=== PATIENT | male | born 1960 | race Caucasian/White ===

== ENCOUNTER → 2020-05-05 15:49 | Outpatient (CLI) | payer BC, SELFPAY | PROVIDERS: PCP Family Medicine; Visit Provider Specialist | DX: N39.0 Urinary tract infection, site not specified (principal); N40.1 Benign prostatic hyperplasia with lower urinary tract symptoms; N13.8 Other obstructive and reflux uropathy; N52.9 Male erectile dysfunction, unspecified | CPT/HCPCS: 51798; 81002; 87086 ==

== ENCOUNTER → 2021-03-04 08:21 | Outpatient (CLI) | payer OTHER, SELFPAY ==
--- NOTE | 2021-03-04 | DI.RAD.S_ITS ---
PROCEDURE: XR CHEST 2V INDICATIONS: ROUTINE SCREENING TECHNIQUE: 2 views of the chest were acquired. COMPARISON: None. FINDINGS: Surgical changes and devices: None. Lungs and pleura: Lungs are clear. No pleural effusions or pneumothorax. Mediastinum: Mediastinal contours are normal. Heart size is normal. Bones and chest wall: No suspicious bony abnormalities. Soft tissues appear unremarkable. IMPRESSION: No acute cardiopulmonary disease. Dictated by: Tiana De Luna M.D. on 03/04/2021 at 12:09 Approved by: Tiana De Luna M.D. on 03/04/2021 at 12:09
== END ==
PROVIDERS: PCP Family Medicine; Referring Provider Family Medicine; Visit Provider Family Medicine
DX: R06.00 Dyspnea, unspecified (principal)
CPT/HCPCS: 71046

== ENCOUNTER → 2021-12-16 09:44 | Outpatient (CLI) | payer OTHER, SELFPAY ==
--- NOTE | 2021-12-16 | DI.RAD.S_ITS ---
PROCEDURE: XR CHEST 2V INDICATIONS: COUGH TECHNIQUE: 2 views of the chest were acquired. COMPARISON: [facility], CR, XR CHEST 2V, 03/04/2021, 8:20. FINDINGS: Surgical changes and devices: None. Lungs and pleura: Lungs are clear. No pleural effusions or pneumothorax. Mediastinum: Mediastinal contours are normal. Heart size is normal. Bones and chest wall: No suspicious bony abnormalities. Soft tissues appear unremarkable. IMPRESSION: No acute cardiopulmonary disease. Dictated by: Tiana De Luna M.D. on 12/16/2021 at 13:24 Approved by: Tiana De Luna M.D. on 12/16/2021 at 13:24
== END ==
PROVIDERS: PCP Family Medicine; Referring Provider Family Medicine; Visit Provider Family Medicine
DX: R05.1 Acute cough (principal)
CPT/HCPCS: 71046

== ENCOUNTER → 2022-01-19 08:20 | Outpatient (CLI) | payer OTHER, SELFPAY ==
--- NOTE | 2022-01-25 09:21 | PM.PFT.1 ---
Pulmonary Function Test Referral & Results Date Patient Seen: 01/19/22 Requesting provider: Desmond Avalos Results: The spirometry demonstrates an FVC of 4.12 L which is 76% of predicted. The FEV1 was measured at 3.11 L which is 77% of predicted. The FEV1/FVC ratio was 75 which is 100% of predicted. Following the administration of bronchodilator there was no notable change. Lung volumes show an SVC of 4.23 L which is 80% of predicted. The diffusing capacity was measured at 36.29 which is 96% of predicted. The maximum voluntary ventilation was normal Interpretation: This study demonstrates possibly very mild obstructive lung disease based on reduction FEV1 alone although FEV1/FVC ratio is preserved and there is no evidence of notable benefit following bronchodilator There is a minimal reduction in lung volumes suggesting the possibility of very minimal restrictive lung disease as well Clinical correlation suggested
== END ==
PROVIDERS: PCP Family Medicine; Referring Provider Family Medicine; Visit Provider Family Medicine
DX: R06.02 Shortness of breath (principal); J98.8 Other specified respiratory disorders
CPT/HCPCS: 94060; 94726; 94729

== ENCOUNTER → 2022-01-26 16:59 | Outpatient (CLI) | payer OTHER, SELFPAY ==
[2022-01-26 18:18] LABS: BUN Creatinine Ratio 20.9 (6-22); Blood Urea Nitrogen 24 mg/dL (9-20); Calcium 9.1 mg/dL (8.4-10.2); Carbon Dioxide 26 mmol/L (22-32); Chloride 106 mmol/L (98-107); Estimated Glomerular Filt Rate > 60 mL/min (>60); Glucose 90 mg/dL (80-110); HEMOLYSIS < 15 (0-50); Potassium 4.6 mmol/L (3.4-5.1); Sodium 139 mmol/L (137-145)
== END ==
PROVIDERS: PCP Family Medicine; Referring Provider Family Medicine; Visit Provider Family Medicine
DX: R06.01 Orthopnea (principal); R05.1 Acute cough
CPT/HCPCS: 36415; 80048

== ENCOUNTER → 2022-01-27 08:01 | Outpatient (CLI) | payer OTHER, SELFPAY ==
--- NOTE | 2022-01-27 | DI.CT.S_ITS ---
PROCEDURE: CT CHEST W CON INDICATIONS: Shortness of breath TECHNIQUE: After the administration of intravenous contrast, 5 mm thick sections acquired from the pulmonary apices to the posterior costophrenic angles. 1 mm axial lung, 5 mm thick coronal and sagittal reformats and 7 mm axial MIP were acquired. For radiation dose reduction, the following was used: automated exposure control, adjustment of mA and/or kV according to patient size. COMPARISON: None. FINDINGS: Image quality: Excellent. Lungs and pleura: No acute air space opacities. 3 mm fissural nodule, right major fissure, likely a benign fissural lymph node. No pleural effusions or pneumothorax. Central and peripheral airways are patent and normal in caliber. Mediastinum: Heart size is normal. No pericardial effusion. No mediastinal or hilar adenopathy by size criteria. Thoracic aorta and central pulmonary arteries are normal in size. Esophagus is normal in caliber. No hiatal hernia. Bones and chest wall: No suspicious bony lesions. No vertebral body compression fractures. No axillary or supraclavicular adenopathy by size criteria. Thyroid gland is unremarkable . Abdomen: There are innumerable low-density benign-appearing liver lesions likely representing presence a polycystic liver. IMPRESSION: 1. No evidence of acute pulmonary process. Normal appearance of lung parenchyma. 2. 3 mm fissural nodule, right lung, likely representing a benign fissural lymph node. 3. Incidental note made of polycystic liver. Dictated by: Avelino Huerta M.D. on 01/27/2022 at 8:24 Approved by: Avelino Huerta M.D. on 01/27/2022 at 8:29
== END ==
PROVIDERS: PCP Family Medicine; Referring Provider Family Medicine; Visit Provider Family Medicine
DX: R06.02 Shortness of breath (principal); R91.1 Solitary pulmonary nodule; Q44.6 Cystic disease of liver
CPT/HCPCS: 71260; Q9967

== ENCOUNTER → 2022-11-17 16:15 | Outpatient (CLI) | payer OTHER, SELFPAY ==
--- NOTE | 2022-11-17 | DI.RAD.S_ITS ---
PROCEDURE: XR FOOT RT MIN 3V INDICATIONS: M79.671 TECHNIQUE: 3 views of the foot were acquired. COMPARISON: None. FINDINGS: Bones: No fractures or dislocations. No suspicious bony lesions. [id number] degenerative joint disease in ankle and foot. Soft tissues: No tibiotalar joint effusion. Achilles tendon appears normal. IMPRESSION: 1. Mild degenerative joint disease. Dictated by: Brent Spencer M.D. on 11/17/2022 at 17:04 Approved by: Brent Spencer M.D. on 11/17/2022 at 17:05
--- NOTE | 2022-11-17 | DI.RAD.S_ITS ---
PROCEDURE: XR CHEST 2V INDICATIONS: Fatigue TECHNIQUE: 2 views of the chest were acquired. COMPARISON: CT, CT CHEST W CON, 01/27/2022, 8:19. CR, XR CHEST 2V, 12/16/2021, 9:35. FINDINGS: Surgical changes and devices: None. Lungs and pleura: Lungs are clear. No pleural effusions or pneumothorax. Mediastinum: Mediastinal contours are normal. Heart size is normal. Bones and chest wall: No suspicious bony abnormalities. Soft tissues appear unremarkable. IMPRESSION: No acute cardiopulmonary disease. Dictated by: Brent Spencer M.D. on 11/17/2022 at 16:56 Approved by: Brent Spencer M.D. on 11/17/2022 at 16:57
== END ==
PROVIDERS: PCP Family Medicine; Referring Provider Family Medicine; Visit Provider Family Medicine
DX: M79.671 Pain in right foot (principal); R53.83 Other fatigue
CPT/HCPCS: 71046; 73630

== ENCOUNTER → 2022-12-13 13:28 | Outpatient (CLI) | payer OTHER, SELFPAY ==
--- NOTE | 2022-12-13 | DI.ECHO.S_ITS ---
[facility]---------+ [facility] +---------+ : : [address] : [place] : : : : [id number] : : : : Phone: [phone]+ Echocardiogram Report + + :Name: JOON FOSTER Study Date: 12/13/2022 Height: 74.5 in: :[facility] ReadingLocation: Weight: 221 lb : : Gender: Male BSA: 2.3 m2 : :: 1960 Age: 62 yrs BP: 154/93 mmHg: :Reason For Study: DYSPNEA : :Ordering Physician: WILD, : :MAO Performed By: Natalya Marks : :Referring: MAO ROME : + + Interpretation Summary The left ventricle is normal in size and wall thickness. Left ventricular systolic function appears normal without focal wall motion abnormalities. The ejection fraction is estimated to be 55-60%. Diastolic parameters suggest a relaxation abnormality of the left ventricle, consistent with probable normal filling pressures. The right ventricle is normal in size and function. The left atrial size is normal. Right atrial size is normal. There is no significant valvular heart disease. The ascending aorta is mildly enlarged. Procedure: A two-dimensional transthoracic echocardiogram with color flow and Doppler was performed. The study quality was technically adequate. There is no prior echocardiogram noted for this patient. The patient was in sinus rhythm with heart rates between 63-72 bpm during the exam. Left Ventricle: The left ventricle is normal in size and wall thickness. Left ventricular systolic function appears normal without focal wall motion abnormalities. The ejection fraction is estimated to be 55-60%. Diastolic parameters suggest a relaxation abnormality of the left ventricle, consistent with probable normal filling pressures. Right Ventricle: The right ventricle is normal in size and function. Atria: The left atrial size is normal. Right atrial size is normal. There is no Doppler evidence for an interatrial shunt. Mitral Valve: The mitral valve is normal in structure and function. There is trace mitral regurgitation. Aortic Valve: The aortic valve is trileaflet. The aortic valve opens well. There is no aortic valve stenosis. No aortic regurgitation is present. Tricuspid Valve: The tricuspid valve is normal in structure and function. There is trace tricuspid regurgitation. Pulmonic Valve: The pulmonic valve leaflets are thin and pliable; valve motion is normal. There is trace pulmonic regurgitation. There is no significant valvular heart disease. Great Vessels: The aortic root is normal size. The ascending aorta is mildly enlarged. The IVC is of normal diameter and collapses less than 50% with a sniff. This suggests a right atrial pressure of 8 mm Hg. Pericardium/ Pleura There is no pericardial effusion. There is no pleural effusion. MMode/2D Measurements & Calculations LVIDd: 4.9 cm LVOT diam: 2.3 cm LVIDs: 3.1 cm Ao root diam: 3.7 cm FS: 36.0 % asc Aorta Diam: 3.7 cm EPSS: 0.56 cm Ao Arch Diam (Prox Trans): 3.4 cm IVSd: 0.85 cm LVPWd: 0.80 cm LV arredondo. diameter/BSA (cm/m^2): 2.1 LV sys. diameter/BSA (cm/m^2): 1.4 LA A2 area: 17.4 cm2 RA long axis: 4.7 cm LA A4 area: 11.9 cm2 RA area: 14.6 cm2 LA length (vol): 4.9 cm RA vol: 38.5 ml LA vol: 36.0 ml RA : 16.9 ml/m2 LA vol index: 15.8 ml/m2 IVC diam: 1.5 cm RVD1 (basal): 3.7 cm RVD2 (mid): 3.5 cm TAPSE: 2.3 cm Doppler Measurements & Calculations Ao V2 max: 122.4 cm/sec LVOT Max Anand: 108.0 cm/sec Ao V2 mean: 90.7 cm/sec LV V1 max P.7 mmHg Ao max P.0 mmHg LV V1 VTI: 19.5 cm Ao mean P.6 mmHg RADHA(I,D): 3.5 cm2 Ao V2 VTI: 24.2 cm RADHA(V,D): 3.8 cm2 sev ratio: 0.80 RADHA indexed to BSA (cm^2/m^2): 1.5 MV E max anand: 57.4 cm/sec PA V2 max: 100.5 cm/sec MV A max anand: 80.8 cm/sec PA V2 mean: 66.7 cm/sec MV E/A: 0.71 PA mean P.1 mmHg Med Peak E' Anand: 4.8 cm/sec PA pr(Accel): 32.8 mmHg E/E' med: 12.1 Lat Peak E' Anand: 5.6 cm/sec E/E' lat: 10.2 E/e' average: 11.1 MV dec time: 0.29 sec SV(LVOT): 83.8 ml Reading Physician:03:32 PM
--- NOTE | 2022-12-13 | DI.NM.S_ITS ---
PROCEDURE: NM EXERCISE TREADMILL NON NUC COMPARISON: None. INDICATIONS: Other forms of dyspnea FINDINGS: The patient exercised for 9 minutes and 12 seconds reaching 103% of maximum predicted heart rate. Hypertension at rest (BP 150/90mmHg) and hypertensive response to exercise (max BP 215/108mmHg). Chest tightness with exercise that resolved during recovery. No ST changes during exercise or recovery. Occasional PVCs present. Above average exercise capacity (10.1 METs, ISHAN -12%). IMPRESSION: Low risk, normal treadmill ECG only study from diagnostic ST changes standpoint. Non-diagnostic chest tightness with exercise that resolved during recovery. Hypertension at rest (BP 150/90mmHg) and hypertensive response to exercise (max BP 215/108mmHg). Above average exercise capacity (10.1 METs, ISHAN -12%). Dictated by: Kevin Griffith MD on 12/14/2022 at 13:12 Approved by: Kevin Griffith MD on 12/14/2022 at 13:16
== END ==
PROVIDERS: PCP Family Medicine; Referring Provider Family Medicine; Visit Provider Family Medicine
DX: I77.89 Other specified disorders of arteries and arterioles (principal); R07.89 Other chest pain; R06.09 Other forms of dyspnea; R06.01 Orthopnea; R03.0 Elevated blood-pressure reading, without diagnosis of hypertension
CPT/HCPCS: 93017; 93306

== ENCOUNTER → 2023-03-16 07:13 | Outpatient (CLI) | payer OTHER, SELFPAY | PROVIDERS: PCP Family Medicine; Referring Provider Internal Medicine; Visit Provider Internal Medicine | DX: R06.02 Shortness of breath (principal) | CPT/HCPCS: 94060; 94726; 94729 ==